=== PATIENT | male | born 1940 | race Caucasian/White ===

== ENCOUNTER → 2019-05-14 | Outpatient (CLI) | payer MEDICARE, OTHER ==
[~2019-05-14] MED LIST: ASPI-515 PO; CALC-545 PO; CHOL2000 PO; CYAN1TAB29 PO; EZET10TA70 PO; FOLI1TAB5 PO; INSU100C5 SQ-INSULIN; LEVO112T2 PO; LISI5TAB7 PO; METO25TA91 PO; OMEG1CAP23 PO; SIMV20TA3 PO
== END | disposition home or self-care (01) ==
LOC: CVU 12:25
PROVIDERS: ATTEND Internal Medicine Cardiovascular Disease
DX: I07.1 Rheumatic tricuspid insufficiency (principal); I51.7 Cardiomegaly; I25.10 Atherosclerotic heart disease of native coronary artery without angina pectoris; Z95.1 Presence of aortocoronary bypass graft; Z95.5 Presence of coronary angioplasty implant and graft
CPT/HCPCS: 93306